=== PATIENT | male | born 1945 | race Hispanic/Latino ===

== ENCOUNTER → 2025-07-19 | Outpatient (CLI) | payer OTHER ==
--- NOTE | 2025-07-19 20:34 | HMCSR ---
APPROVED REPORT EXAM: Two-dimensional and M-mode echocardiogram with Doppler and color Doppler. INDICATION ICD: Chronic ischemic heart disease, unspecified I25.9 2D Dimensions RVDd 3.4 cm LVEF(%) 61.9 (>50%) LVED Vol(simp.) 65.9 mL IVSd 1.0 (0.7-1.1cm) FS(%) 33 % LVES Vol(simp.) 25.3 mL LVDd 4.2 (3.8-5.6cm) LA (2D) 3.8 (1.6-4.0cm) LVEF(%, simp.) 62 % PWd 1.0 (0.7-1.1cm) Ao Root(2D) 3.1 (2.0-3.7cm) LA ESV INDEX (BP) 20.27 mL/m2 LVDs 2.8 (2.5-4.0cm) LVOT diam 2.1 (1.8-2.4cm) IVC diam 1.2 cm Aortic Valve AoV Vmax 1.1 m/s Ao Peak GR 5.0 mmHg LVOT Vmax 1.0 m/s AoV VTI 0.2 m Ao Mean GR 2.9 mmHg LVOT VTI 0.21 m CAMRON (VMAX) 3.13 cm2 CAMRON (VTI) 3.2 cm2 Mitral Valve MV E Vmax 56.1 cm/s DECEL Time 167 ms MV A Vmax 79.3 cm/s P 1/2 T 30 ms E/A ratio 0.7 MVA (PHT) 7.4 cm2 TDI E/E' Medial 9.2 E/E' Lateral 8.5 Medial E' Peak V 6.13 cm/s Lateral E' Peak V 6.61 cm/s Pulmonary Valve PV Vmax 0.8 m/s PV VTI 0.14 m PV Mean GR 1.5 mmHg PV Peak GR 2.7 mmHg Left Ventricle The left ventricle is normal size. There is normal left ventricular wall thickness. LVEF is 60-65%. The left ventricular diastolic function is normal. Right Ventricle The right ventricle is normal size. The right ventricular systolic function is normal. Atria The left atrium size is normal. The right atrium size is normal. Aortic Valve The aortic valve is trilefalet and displays nodular calcification on Right coronary cusp No aortic regurgitation is present. There is no aortic valvular stenosis. Mitral Valve The mitral valve is normal in structure. There is no evidence of significant mitral regurgitation. There is no mitral valve stenosis. Tricuspid Valve The tricuspid valve is normal in structure. There is no tricuspid valve regurgitation noted. Pulmonic Valve The pulmonary valve is not well visualized. There is no pulmonic valvular regurgitation. Great Vessels The aortic root is normal in size. The IVC is normal in size and collapses >50% with inspiration. Pericardium There is no pericardial effusion. Other Information Quality : Good Rhythm : NSR Conclusion LVEF is 60-65%. The left ventricular diastolic function is normal. The aortic valve is trilefalet and displays nodular calcification on Right coronary cusp
== END | disposition home or self-care (01) ==
LOC: RAH 12:24
PROVIDERS: ATTEND Chiropractor
DX: I25.9 Chronic ischemic heart disease, unspecified (principal)
CPT/HCPCS: 93306